=== PATIENT | female | born 1950 | race Caucasian/White ===

== ENCOUNTER 2016-11-29 10:10 | Outpatient (CLI) | payer MEDICARE, BC ==
[~2016-11-29] VITALS: Ht 162.6 cm; Wt 58.2 kg
--- NOTE | ~2016-11-29 | HEMODYNAMI ---
PATIENT:JAD CORNEJO MEDICAL RECORD: [id number] : 50 LOCATION:[facility] ADMISSION DATE: 11/29/16 Generatedon:11/29/201615:45 Patient name: JAD CORNEJO Patient #: [id number] SSN: : 1950 Date of study: 11/29/2016 Page: Of Hemodynamic Procedure Report Patient Data Patient Demographics Procedure consent was obtained First Name: JAD Gender: Female Last Name: CHANTAL : 1950 [facility] Initial: L Age: 66 year(s) Patient #: [id number] Race: Unknown Additional ID: [id number] Contact details Address: [address] [address] State: [place] City: [place] Zip code: [address] Admission Admission Data Admission Date: 11/29/2016 Admission Time: 10:10 Procedure Procedure Types Cath Procedure Peripheral Cath Diagnostic Procedure Miscellaneous Procedure Description Procedure Date Procedure Date: 11/29/2016 Procedure Start Time: 14:06 Procedure Staff Name Function Juvencio Sanches MD Performing Physician Brianne Bauer RT Scrub Phuong Virgen RN Nurse Luiz Hayden RT Monitor Procedure Data Cath Procedure Fluoroscopy Diagnostic fluoroscopy Total fluoroscopy Time: time: 19.9 min 19.9 min Diagnostic fluoroscopy Total fluoroscopy dose: 730 dose: 730 mGy mGy Contrast Material Contrast Material Type Amount (ml) Isovue 300 171 Entry Location Entry Primary Successful Side Size Upsize Upsize Entry Closure Succes sful Closure Location (Fr) 1 (Fr) 2 (Fr) Remarks Device Remarks Femoral Right 5 Fr 6 Fr Exoseal artery Short Femoral Left 5 Fr Exoseal artery Diagnostic catheters Device Type Used For End Catheter Placement Merit ULTRA BOLUS FLUSH 5Fr 65CM catheter Merit Impress KA 2 5Fr 40CM catheter Procedure Medications Medication Administration Route Dosage Heparin Bolus I.V. 5000 units Fentanyl I.V. 50 mcg Versed I.V. 1 mg Hemodynamics Rest Heart Rate: 56 (bpm) Snapshots Pre Cath Intra NCS Post Cath Vital Signs Time Heart Resp SPO2 NIBP (mmHg) Rhythm Pain Sedation Rate (ipm) (%) Status Level (bpm) 14:05:08 53 15 100 166/69(102) NSR 0 (11) 10(A) , No pain 14:09:35 59 16 100 180/78(106) NSR 0 (11) 10(A) , No pain 14:13:59 58 22 100 170/72(107) NSR 0 (11) 10(A) , No pain 14:19:12 60 14 100 148/66(114) NSR 0 (11) 10(A) , No pain 14:24:27 57 18 100 170/77(131) NSR 0 (11) 10(A) , No pain 14:28:54 58 24 100 175/73(128) NSR 0 (11) 10(A) , No pain 14:33:14 61 22 98 151/76(112) NSR 0 (11) 10(A) , No pain 14:37:36 61 23 97 146/69(111) NSR 0 (11) 10(A) , No pain 14:41:58 58 27 97 139/61(107) NSR 0 (11) 10(A) , No pain 14:46:20 55 18 96 122/54(91) NSR 0 (11) 10(A) , No pain 14:50:34 53 19 96 112/58(87) NSR 0 (11) 10(A) , No pain 14:54:44 55 18 97 112/60(87) NSR 0 (11) 10(A) , No pain 14:58:54 58 17 98 126/59(97) NSR 0 (11) 10(A) , No pain 15:03:10 56 19 98 122/55(82) NSR 0 (11) 10(A) , No pain 15:07:20 56 18 97 126/67(99) NSR 0 (11) 10(A) , No pain 15:11:36 59 20 98 128/57(102) NSR 0 (11) 10(A) , No pain 15:15:50 59 21 94 130/65(82) NSR 0 (11) 10(A) , No pain 15:20:04 57 19 94 134/66(91) NSR 0 (11) 10(A) , No pain 15:24:20 57 22 96 133/65(94) NSR 0 (11) 10(A) , No pain 15:28:38 57 18 99 135/55(93) NSR 0 (11) 10(A) , No pain 15:32:56 57 25 100 141/63(109) NSR 0 (11) 10(A) , No pain 15:37:14 55 23 100 133/70(101) NSR 0 (11) 10(A) , No pain 15:41:26 55 23 99 147/77(123) NSR 0 (11) 10(A) , No pain Medications Time Medication Route Dose Verified Delivered Reason Notes Effe ctiveness by by 14:20:39 Versed I.V. 1 mg Phuong Phuong for sedation Promise Virgen RN RN 14:20:53 Fentanyl I.V. 50 Phuong Phuong for sedation mcg Promise Virgen RN RN 14:27:27 Heparin I.V. 5000 Phuong Phuong for Bolus units Promise Virgen anticoagulation RN chips screen tender Log Time Note 13:39:18 Luiz Hayden RT (R) (CV) sent for patient. Start room use. 13:39:28 Time tracking: Regular hours 13:39:34 Plan of Care:Hemodynamics will remain stable., Cardiac rhythm will remain stable., Comfort level will be maintained., Respiratory function will remain adequate., Patient/ family verbilizes understanding of procedure., Procedure tolerated without complication., Recovers from procedure without complications.. 13:39:42 Patient received from Outpatients to [facility] 1 Alert and oriented. Tansferred to table in Supine position. 13:39:43 Correct patient and procedure confirmed by team. 13:39:45 Signed procedure consent form obtained from patient. 13:39:46 ECG and BP/O2 sat monitors applied to patient. 13:39:48 Full Disclosure recording started 13:39:48 - 13:39:51 H&P Date Dictated: 11/29/2016 H&P Addendum completed by physician on day of procedure. (MUST COMPLETE FOR ALL OUTPATIENTS). 13:39:52 Pre-procedure instructions explained to patient. 13:39:52 Pre-procedure instructions explained to patient. 13:39:53 Pre-op teaching completed and patient verbalized understanding. 13:39:54 Family in waiting room. 13:39:56 Patient NPO since Midnight. 13:40:01 Is the patient allergic to Iodine/contrast media? No. 13:40:03 Is patient on blood thinner?Yes 13:40:06 ACC The patient was administered the following blood thiners within the last 24 hours: ACCPlavix 13:40:08 - 13:40:09 ----Pre-sedation anethsthesia assessment.---- 13:40:09 ----Pre-sedation anethsthesia assessment.---- 13:40:12 Previous problem with sedation/anesthesia? No ? 13:40:13 Snore? Yes 13:40:14 Sleep apnea? No 13:40:16 Deviated septum? No 13:40:18 Opens mouth fully? Yes 13:40:20 Sticks out tongue? Yes 13:40:25 Airway obstruction? N/A ? 13:40:29 Airway obstruction? No ? 13:40:34 Dentures? Yes ? 13:40:39 Pre procedure: right dorsailis pedis pulse Doppler 13:40:44 Pre procedure: left dorsailis pedis pulse Doppler 13:40:47 Pre procedure: right posterior tibial pulse Doppler 13:40:51 Pre procedure: left posterior tibial pulse Doppler 13:41:00 Use device set IR Diagnostic 13:41:02 Acist Syringe opened to sterile field. 13:41:02 Acist Hand Control opened to sterile field. 13:41:03 Acist Manifold opened to sterile field. 13:41:03 Bag Decanter opened to sterile field. 13:41:04 Sterile Angiographic Pack opened to sterile field. 13:53:09 TUBING, CONTRAST INJCTN HI PRES opened to sterile field. 13:53:28 IV patent on arrival in right hand with 0.9% NaCl at [facility]. 13:53:31 Alarms reviewed by R. N. 13:53:32 Sharps counted by scrub and verified by R.N. 13:59:55 Baseline sample Acquired. 13:59:55 Vital chart was started 14:00:00 Rhythm: sinus bradycardia 14::27 Physician arrived 14:: --------ALL STOP TIME OUT------ :: Final Timeout: patient, procedure, and site verified with staff and physician. All members of the team are in agreement. 14::31 Left groin site verified by team. 14::35 Physical assessment completed. ASA score P 2 - A patient with mild systemic disease as per Juvencio Sanches MD. 14:05:41 Sedation plan: IV Moderate Sedation Versed, Fentanyl 14:06:09 Procedure started. 14:06:19 Local anesthetic to left femerol artery with Lidocaine 1% by Juvencio Sanches MD.INITIAL ACCESS ONLY 14:07:35 A 5 Fr sheath was inserted into the Right Femoral artery 14:07:57 Micropuncture VSI 4FR kit opened to sterile field. 14:07:58 Terumo 5Fr [place] Sheath opened to sterile field. 14:07:59 Cook DOC .035 guide wire opened to sterile field. 14:08:03 A Merit ULTRA BOLUS FLUSH 5Fr 65CM catheter was advanced over the wire and used for . 14:19:25 Cordis 6Fr BRITE TIP 11cm sheath opened to sterile field. 14:20:18 Sheath upsized to a 6 Fr Short. 14:20:39 Versed 1 mg I.V. was administered by Phuong Virgen RN; for sedation; 14::53 Fentanyl 50 mcg I.V. was administered by Phuong Virgen RN; for sedation; 14:23:09 Cook DOC .035 guide wire opened to sterile field. 14:25:55 CXI Catheter 90cm opened to sterile field. 14:25:55 Terumo ANGLE 180L glide wire opened to sterile field. 14:27:27 Heparin Bolus 5000 units I.V. was administered by Phuong Virgen RN; for anticoagulation; 14:28:53 A kubo financiero KA 2 5Fr 40CM catheter was advanced over the wire and used for . 14:36:30 BasixTOUCH Inflation Syringe opened to sterile field. 14:38:28 Cook MOBLEY 260 guide wire opened to sterile field. 14:52:22 Inflation number: 1 A Cordis Powerflex Pro 3.0 x 40 x 80cm balloon was prepped and advanced across the Proximal Common Iliac, Right, then inflated to 0 MIKIE for 0:00 (min:sec). 15:00:18 A 5 Fr sheath was inserted into the Left Femoral artery 15:07:10 Entrust 8 x 100 Stent was deployed across Proximal Common Iliac, Right . 15:14:55 Inflation number: 2 A Cordis Powerflex Pro 6.0 X 80 X 135 balloon was prepped and advanced across the Proximal Common Iliac, Right, then inflated to 0 MIKIE for 0:00 (min:sec). 15:21:54 Cordis 6Fr Exoseal opened to sterile field. 15:24:41 Sheath removed intact; hemostasis achieved with Exoseal to the Right Femoral artery. 15:25:44 Cordis 5Fr Exoseal opened to sterile field. 15:27:45 Sheath removed intact; hemostasis achieved with Exoseal to the Left Femoral artery. 15:27:51 Procedure ended.(Physican Out) 15:29:18 Fluoroscopy time 19.90 minutes. 15:29:26 Fluoroscopy dose: 730 mGy 15:29:26 Flurop Dose total: 730 15:29:32 Contrast amount:Isovue 300 171ml. 15:29:33 Sharps counted by scrub and verified by R.N. 15:29:35 Insertion/operative site no bleeding no hematoma. 15:29:40 Post-op/insertion site Right Femoral artery dressed using a 4 x 4 and Tegaderm. 15:29:48 Post left femerol artery:stable 15:30:13 Dermabond Pen opened to sterile field. 15:32:12 Post Procedure Pulses reassessed and unchanged 15:32:16 Post-procedure physical assessment completed. ASA score P 2 - A patient with mild systemic disease as per Juvencio Sanches MD. 15:32:19 Post procedure rhythm: unchanged. 15:32:22 Post procedure instruction explained to patient.Patient verbalizes understanding. 15:32:22 Procedure and supply charges have been captured, reviewed, submitted an d are correct. 15:43:41 Report given to Outpatients. 15:43:49 Patient transfered to Outpatients with Bed. 15:45:55 Vital chart was stopped Intervention Summary Intervention Notes Time ActionType Lesion and Equipment Action# Pressure Duration Attributes Used 14:52:22 Inflate Proximal Cordis 1 0 00:00 balloon Common Powerflex Iliac, Pro 3.0 x Right 40 x 80cm balloon 15:07:10 Deploy self Proximal Entrust 8 1 expanding Common x 100 stent Iliac, Stent Right 15:14:55 Inflate Proximal Cordis 2 0 00:00 balloon Common Powerflex Iliac, Pro 6.0 X Right 80 X 135 balloon Device Usage Item Name Manufacture Quantity Catalog Number Hospital Part Current Minimal Lot# / Charge Number Stock Stock Serial# Code Acist Syringe Acist 1 25853 268251 935689 743823 20 Medical [employer] Inc Acist Hand Acist 1 93110 422961 640568 598996 5 Control [employer] Inc Acist Acist 1 71746 273800 122990 400902 5 Manifold Medical Systems Inc Bag Decanter Microtek 1 2002S 538369 47882 748615 5 Medical Inc. Sterile Cardinal 1 [id number] 475934 570768 5 Angiographic Health Pack TUBING, Merit 1 [id number] 280706 620688 684880 5 CONTRAST Medical INJCTN HI PRES Micropuncture VSI VASCULAR 1 7266V 656046 774976 5 VSI 4FR kit SOLUTIONS Terumo 5Fr Terumo 1 [id number] 473817 194376 587218 40 [place] Sheath Cook DOC .035 [facility] 2 [id number] 928250 221817 5 [id number] guide wire [id number] Merit ULTRA Merit 1 [id number] 131977 687803 5 BOLUS FLUSH Medical 5Fr 65CM catheter Cordis 6Fr Cardinal 1 [id number] 422117 097370 5 BRITE TIP Health 11cm sheath CXI Catheter [facility] 1 K49797 047106 750262 634424 5 [id number] 90cm Terumo ANGLE Terumo 1 [id number] 709278 379690 160922 5 180L glide wire Merit Impress Merit 1 [id number] 726644 755570 5 KA 2 5Fr 40CM Medical catheter BasixTOUCH Merit 1 [id number] 104597 975429 958361 5 Inflation Medical Syringe Cook [facility] 1 E03794 237018 138681 5 2812020 260 guide wire Cordis Cardinal 1 [id number] 334663 460572 906516 5 Powerflex Pro Health 3.0 x 40 x 80cm balloon Entrust 8 x Ev3 1 [id number] 362812 174954 074033 5 100 Stent Cordis Cardinal 1 [id number] 194809 491834 299091 5 Powerflex Pro Health 6.0 X 80 X 135 balloon Cordis 6Fr Cardinal 1 EX600 123590 921636 264514 10 [id number] Exoseal Health Cordis 5Fr Cardinal 1 EX500 925172 779398 228113 10 [id number] Exoseal Health Dermabond Pen Cardinal 1 859464 849160 5 Health Signature Audit [place] Stage Time Signature Unsigned Intra-Procedure 11/29/2016 Luiz 3:45:51 PM Catracho RT (R) (CV) Signatures Monitor : Luiz Signature : Catracho RT Date : Time : [id number] [place] [address]
[2016-11-29 11:15] VITALS: BP 112/59; Ht 162.6 cm; Wt 58.2 kg
[2016-11-29 11:29] LABS: BASOPHILS 0.5 % (0-2); EOSINOPHILS 1.7 % (0-7); HEMATOCRIT 35.6 % (36.0-48.0); HEMOGLOBIN 12.1 g/dL (12-16); IMMATURE GRANULOCYTES 0.2 % (0-5); LYMPHOCYTES 28.2 % (15-50); MCH 36.2 pg (26.0-34.0); MCV 106.6 fL (80.0-100.0); MONOCYTES 6.2 % (2-11); NEUTROPHILS 63.2 % (40-80); PLATELET COUNT 309 10x3/uL (130-400); RBC 3.34 10x6/uL (4.00-5.40); WBC 6.5 10x3/uL (4.8-10.8)
[2016-11-29] MEDS ORDERED: BAYER CHEWABLE81 MG PO (11:31)
[2016-11-29] MEDS ORDERED: LEVOXYL50 MCG PO (11:32)
[2016-11-29] MEDS ORDERED: PAXIL30 MG PO (11:32)
[2016-11-29] MEDS ORDERED: HYDROXYUREA500 MG PO (11:33)
[2016-11-29] MEDS ORDERED: PRAVACHOL40 MG PO (11:34)
[2016-11-29] MEDS ORDERED: VITAMIN D31000 UNIT PO (11:35)
[2016-11-29] MEDS ORDERED: CALTRATE 600 M600 M1 PO (11:36)
[2016-11-29] MEDS ORDERED: PLAVIX75 MG PO (11:38)
[2016-11-29] MEDS ORDERED: SYMBICORT 80-10.2 GM (11:38)
[2016-11-29 11:57] LABS: CALC OSMOLALITY 282 mosm/kg (275-300); CALCIUM 9.2 mg/dL (8.5-10.1); CARBON DIOXIDE 27.2 mmol/L (21.0-32.0); CHLORIDE - SERUM 106 mmol/L (98-107); CREATININE - SERUM 0.7 mg/dL (0.6-1.3); GLUCOSE 105 mg/dL (74-106); POTASSIUM - SERUM 4.4 mmol/L (3.5-5.1); SODIUM 142 mmol/L (136-145); UREA NITROGEN 13 mg/dL (7-18); eGFR NON AFRICAN AMERICAN 89 mL/min (90-120)
[2016-11-29 12:17] LABS: APTT 31.9 SECONDS (22.8-39.4); INR 0.97 (0.85-1.17); PROTIME 12.7 SECONDS (11.6-15.0)
[2016-11-29] MEDS ORDERED: BAYER CHEWABLE81 MG (16:17)
--- NOTE | 2016-11-29 16:39 | NUR ---
1600 BACK FROM AFRO AND STENT. AWAKE RESP EVEN AND NONLABORED. HADLEY GROIN DRESSINGS C/D/I NO BLEEDING PULSES PRESENT WITH DOPPLAR. INSTRUCTED TO KEEP LEGS STRAIGHT. DENIES ICE WATER SERVED. C/L IN REACH. INSTRUCTED TO PATIENT HAS TO KEEP LEGS STRAIGHT TO PREVENT BLEEDING AND NOT TO ELEVATE HOB GREATER THAN 30 DEGREES.
--- NOTE | 2016-11-29 17:46 | NUR ---
1700 TOLERATING LIQUIDS AND ENCOURAGED LIQUIDS. ICE PACK TO HADLEY GROINS. NO BLEEDING PULSES PP WITH DOPPLER.
--- NOTE | 2016-11-29 18:00 | NUR ---
1705 DR. SAAVEDRA HERE SEEING PATIENT.
--- NOTE | 2016-11-29 18:01 | NUR ---
1800 REMAINS KEEPING LEGS STRAIGHT PP WITH DOPPLER POSTERIAL TIBIALIS WEAK.
--- NOTE | 2016-11-29 19:31 | NUR ---
1850 RESP EVEN AND NONLABORED. UP WITH ASSISTANCE TO THE BATHROOM VOIDED. WENT OVER DISCHARGE INSTRUCTIONS POST ARTERIOGRAM ORDERS. INSTRUCTED TO TAKE PLAVIX DAILY STARTING TOMORROW AND INSTRUCTED TO TAKE ASA 81MG NOT 325 MG. TOLD WHAT TO DO AND NOT TO DO. VERBALLY UNDERSTANDS.
--- NOTE | 2016-11-29 19:33 | NUR ---
1915 TO HOME VIA W/C WITH SPOUSE.
== END 2016-11-29 19:15 | disposition home or self-care (01) ==
LOC: D.OPS 10:10 → D.SP 13:00 → D.OPS 13:00
PROVIDERS: General Practice
DX: I70.223 Atherosclerosis of native arteries of extremities with rest pain, bilateral legs (principal); I70.92 Chronic total occlusion of artery of the extremities; I77.811 Abdominal aortic ectasia; Z88.0 Allergy status to penicillin; Z88.8 Allergy status to other drugs, medicaments and biological substances; Z01.812 Encounter for preprocedural laboratory examination

== ENCOUNTER 2016-12-11 10:58 | Outpatient (CLI) | payer MEDICARE, BC ==
[~2016-12-11] VITALS: Ht 162.6 cm; Wt 58.6 kg
--- NOTE | ~2016-12-11 | HEMODYNAMI ---
PATIENT:JAD CORNEJO MEDICAL RECORD: [id number] : 50 LOCATION:[facility] ADMISSION DATE: 12/11/16 Generatedon:12/11/201615:30 Patient name: JAD CORNEJO Patient #: [id number] SSN: : 1950 Date of study: 12/11/2016 Page: Of Hemodynamic Procedure Report Patient Data Patient Demographics Procedure consent was obtained First Name: JAD Gender: Female Last Name: CHANTAL : 1950 [facility] Initial: L Age: 66 year(s) Patient #: [id number] Race: Unknown Additional ID: [id number] Contact details Address: [place] [address] State: [place] City: [place] Zip code: [address] Admission Admission Data Admission Date: 12/11/2016 Admission Time: 10:58 Procedure Procedure Types Cath Procedure Peripheral Cath Diagnostic Procedure Miscellaneous Procedure Description Procedure Date Procedure Date: 12/11/2016 Procedure Start Time: 14:03 Procedure Staff Name Function Juvencio Sanches MD Performing Physician Brianne Bauer RT Scrub Phuong Virgen RN Nurse Luiz Hayden RT Monitor Procedure Data Cath Procedure Fluoroscopy Diagnostic fluoroscopy Total fluoroscopy Time: time: 18.8 min 18.8 min Diagnostic fluoroscopy Total fluoroscopy dose: 124 dose: 124 mGy mGy Contrast Material Contrast Material Type Amount (ml) Isovue 300 132 Entry Location Entry Primary Successful Side Size Upsize 1 Upsize Entry Closure Cordero ccessful Closure Location (Fr) (Fr) 2 (Fr) Remarks Device Remarks Femoral Right 5 Fr 6 Fr Exoseal artery Mid-Length Diagnostic catheters Device Type Used For End Catheter Placement Merit ULTRA BOLUS FLUSH 5Fr 65CM catheter Procedure Medications Medication Administration Route Dosage Fentanyl I.V. 50 mcg Versed I.V. 1 mg Fentanyl I.V. 50 mcg Versed I.V. 1 mg Heparin Bolus I.V. 5000 units Nitroglycerin IC/IA I.A. 200 mcg Nitroglycerin IC/IA I.A. 200 mcg Hemodynamics Rest Heart Rate: 58 (bpm) Snapshots Pre Cath Intra NCS Post Cath Vital Signs Time Heart Resp SPO2 NIBP (mmHg) Rhythm Pain Sedation Rate (ipm) (%) Status Level (bpm) 14:11:30 64 19 98 151/62(121) NSR 0 (11) 10(A) , No pain 14:15:54 60 21 96 118/50(77) NSR 0 (11) 10(A) , No pain 14:20:06 60 22 98 135/56(85) NSR 0 (11) 10(A) , No pain 14:24:26 61 27 98 125/48(76) NSR 0 (11) 10(A) , No pain 14:28:42 64 19 99 132/53(93) NSR 0 (11) 10(A) , No pain 14:33:02 62 21 97 111/46(73) NSR 0 (11) 10(A) , No pain 14:37:08 61 19 97 103/70(86) NSR 0 (11) 10(A) , No pain 14:42:15 60 20 98 118/53(80) NSR 0 (11) 10(A) , No pain 14:46:28 61 19 98 124/55(85) NSR 0 (11) 10(A) , No pain 14:50:41 60 28 98 129/58(88) NSR 0 (11) 10(A) , No pain 14:54:58 59 21 98 123/57(82) NSR 0 (11) 10(A) , No pain 14:59:11 62 20 96 124/59(95) NSR 0 (11) 10(A) , No pain 15:03:27 59 21 98 132/53(93) NSR 0 (11) 10(A) , No pain 15:07:33 61 15 98 107/83(92) NSR 0 (11) 10(A) , No pain 15:12:40 57 19 98 128/57(86) NSR 0 (11) 10(A) , No pain 15:16:57 58 22 99 134/57(91) NSR 0 (11) 10(A) , No pain 15:21:02 58 12 100 126/63(95) NSR 0 (11) 10(A) , No pain 15:25:12 59 32 100 142/69(109) NSR 0 (11) 10(A) , No pain 15:29:18 57 27 100 118/61(93) NSR 0 (11) 10(A) , No pain Medications Time Medication Route Dose Verified Delivered Reason Notes Ef fectiveness by by 14:08:51 Versed I.V. 1 mg Phuong Phuong for sedation Promise Virgen RN RN 14:08:57 Fentanyl I.V. 50 Phuong Phuong for sedation mcg Promise Virgen RN RN 14:14:03 Fentanyl I.V. 50 Phuong Phuong for sedation mcg Promise Virgen RN RN 14:14:11 Versed I.V. 1 mg Phuong Phuong for sedation Promise Virgen RN RN 14:27:59 Nitroglycerin I.A. 200 Phuong Juvencio for IC/IA mcg Promise Sanches MD vasodilation RN 14:30:11 Heparin Bolus I.V. 5000 Phuong Phuong for units Promise Virgen anticoagulation RN RN 14:57:11 Nitroglycerin I.A. 200 Phuong Juvencio for IC/IA mcg Promise Sanches MD vasodilation atg architect Log Time Note 13:39:04 Luiz Hayden RT (R) (CV) sent for patient. Start room use. 13:39:37 Use device set IR Diagnostic 13:39:38 Acist Syringe opened to sterile field. 13:39:38 Acist Hand Control opened to sterile field. 13:39:39 Acist Manifold opened to sterile field. 13:39:39 Bag Decanter opened to sterile field. 13:39:39 Sterile Angiographic Pack opened to sterile field. 13:39:43 Time tracking: Regular hours 13:39:47 Plan of Care:Hemodynamics will remain stable., Cardiac rhythm will remain stable., Comfort level will be maintained., Respiratory function will remain adequate., Patient/ family verbilizes understanding of procedure., Procedure tolerated without complication., Recovers from procedure without complications.. 13:39:53 Patient received from Outpatients to IR Alert and oriented. Tansferred to table in Supine position. 13:39:54 Correct patient and procedure confirmed by team. 13:39:57 Signed procedure consent form obtained from patient. 13:39:58 ECG and BP/O2 sat monitors applied to patient. 13:39:59 Full Disclosure recording started 13:40:00 - 13:40:05 H&P Date Dictated: 12/11/2016 H&P Addendum completed by physician on day of procedure. (MUST COMPLETE FOR ALL OUTPATIENTS). 13:40:06 Pre-procedure instructions explained to patient. 13:40:07 Pre-op teaching completed and patient verbalized understanding. 13:40:08 Family in waiting room. 13:40:10 Patient NPO since Midnight. 13:40:12 Is the patient allergic to Iodine/contrast media? No. 13:40:15 Is patient on blood thinner?Yes 13:40:17 ACC The patient was administered the following blood thiners within the last 24 hours: ACCPlavix 13:40:20 Patient diabetic? No. 13:40:22 - 13:40:22 - 13:40:24 ----Pre-sedation anethsthesia assessment.---- 13:40:27 Previous problem with sedation/anesthesia? No ? 13:40:28 Snore? Yes 13:40:31 Sleep apnea? No 13:40:34 Deviated septum? No 13:40:35 Opens mouth fully? Yes 13:40:37 Sticks out tongue? Yes 13:40:40 Airway obstruction? Yes copd 13:40:44 Dentures? No ? 13:40:54 Patient pain scale 0/10 no pain. 13:41:07 IV patent on arrival in right forearm with 0.9% NaCl at [facility]. 13:41:13 Sharps counted by scrub and verified by R.N. 13:41:13 Alarms reviewed by R. N. 13:41:26 Bilateral groins area was prepped with chlora-prep and draped in steril e fashion 14:00:03 Physician arrived 14:00:04 --------ALL STOP TIME OUT------ 14:00:05 Final Timeout: patient, procedure, and site verified with staff and physician. All members of the team are in agreement. 14:00:07 Bilateral groins site verified by team. 14:00:16 Physical assessment completed. ASA score P 2 - A patient with mild systemic disease as per Juvencio Sanches MD. 14:00:18 Procedure started. 14:00:20 Sedation plan: IV Moderate Sedation Versed, Fentanyl 14:03:36 Local anesthetic to right femoral artery with Lidocaine 1% by Juvencio Sanches MD.INITIAL ACCESS ONLY 14:08:16 TUBING, CONTRAST INJCTN HI PRES opened to sterile field. 14:08:17 Tech.eu DOC .035 guide wire opened to sterile field. 14:08:17 Micropuncture VSI 4FR kit opened to sterile field. 14:08:18 Terumo 5Fr Savage Sheath opened to sterile field. 14:08:28 A [place] PUD ULTRA BOLUS FLUSH 5Fr 65CM catheter was advanced over the wire and used for . 14:08:51 Versed 1 mg I.V. was administered by Phuong Virgen RN; for sedation; 14:08:57 Fentanyl 50 mcg I.V. was administered by Phuong Virgen RN; for sedation; 14:10:07 Vital chart was started 14:10:09 Baseline sample Acquired. 14:10:14 Rhythm: sinus rhythm 14:14:03 Fentanyl 50 mcg I.V. was administered by Phuong Virgen RN; for sedation; 14:14:11 Versed 1 mg I.V. was administered by Phuong Virgen RN; for sedation; 14:14:49 Terumo TORQUE DEVICE PLASTIC .038 opened to sterile field. 14:14:50 Terumo ANGLE 260cm glide wire opened to sterile field. 14:14:51 Cook MOBLEY 260 guide wire opened to sterile field. 14:15:05 A 5 Fr sheath was inserted into the Right Femoral artery 14:16:34 Terumo 5FR ANGLED 100CM glide catheter opened to sterile field. 14:19:09 Baseline sample Acquired. 14:24:32 Terumo 6Fr Savage Destination Sheath opened to sterile field. 14:24:33 CXI SUPPORT .035 135 CM STR catheter opened to sterile field. 14:24:40 Sheath upsized to a 6 Fr Mid-Length. 14:25:29 BasixTOUCH Inflation Syringe opened to sterile field. 14:27:59 Nitroglycerin IC/IA 200 mcg I.A. was administered by Juvencio Sanches MD; fo r vasodilation; 14:30:11 Heparin Bolus 5000 units I.V. was administered by Phuong Virgen RN; for anticoagulation; 14:39:38 SPIDER EMBOLIC PROTECTION DEVICE 4MM opened to sterile field. 14:40:30 [place] Sci Choice Floppy Straight 300cm 0.014 guid opened to sterile field. 14:57:11 Nitroglycerin IC/IA 200 mcg I.A. was administered by Juvencio Sanches MD; fo r vasodilation; 14:58:44 Inflation number: 1 A IN.PACT Admiral 4 x 150 balloon was prepped and advanced across the Undefined1, then inflated to 0 MIKIE for 0:00 (min:sec). 15:05:55 Timer 1 started at 3:05 PM, stopped at 3:05 PM, duration 00:00:01 sec. 15:07:32 Turbohawk 1 Small Atherectomy catheter opened to sterile field. 15:16:43 Cordis 6Fr Exoseal opened to sterile field. 15:20:41 Terumo 6Fr Savage Sheath opened to sterile field. 15:22:43 Sheath removed intact; hemostasis achieved with Exoseal to the Right Femoral artery. 15:22:47 Procedure ended.(Physican Out) 15:23:53 Fluoroscopy time 18.80 minutes. 15:23:58 Fluoroscopy dose: 124 mGy 15:23:58 Flurop Dose total: 124 15:24:13 Contrast amount:Isovue 300 132ml. 15:24:15 Sharps counted by scrub and verified by TrentN. 15:25:36 Post-op/insertion site Right Femoral artery dressed using a 4 x 4 and Tegaderm. 15:25:39 Post right femoral artery:stable 15:25:41 Post Procedure Pulses reassessed and unchanged 15:25:44 Post-procedure physical assessment completed. ASA score P 2 - A patient with mild systemic disease as per Juvencio Sanches MD. 15:25:45 Post procedure instruction explained to patient.Patient verbalizes understanding. 15:25:52 Procedure and supply charges have been captured, reviewed, submitted an d are correct. 15:30:06 Report given to Outpatients. 15:30:10 Patient transfered to Outpatients with Stretcher. 15:30:50 Vital chart was stopped Intervention Summary Intervention Notes Time ActionType Lesion and Equipment Action# Pressure Duration Attributes Used 14:58:44 Inflate Undefined1 IN.PACT 1 0 00:00 balloon Admiral 4 x 150 balloon Device Usage Item Name Manufacture Quantity Catalog Number Hospital Part Current Minimal Lot# / Charge Number Stock Stock Serial# Code Acist Syringe Acist 1 33729 297858 412872 716116 20 Medical Systems Inc Acist Hand Acist 1 31363 825342 633245 732365 5 Control Medical Systems Inc Acist Acist 1 44531 761458 947125 866897 5 Manifold Medical Systems Inc Bag Decanter Microtek 1 2002S 890229 33408 689850 5 Medical Inc. Sterile Cardinal 1 [id number] 824112 686550 5 Angiographic Health Pack TUBING, Merit 1 [id number] 344958 536901 396547 5 CONTRAST Medical INJCTN HI PRES Cook DOC .035 [place] [facility] 1 [id number] 564186 122053 5 [id number] guide wire Micropuncture VSI VASCULAR 1 7266V 980798 695528 5 VSI 4FR kit SOLUTIONS Terumo 5Fr Terumo 1 RLP230 629614 893939 655891 40 Savage Sheath Merit ULTRA Merit 1 [id number] 206272 066390 5 BOLUS FLUSH Medical 5Fr 65CM catheter Terumo TORQUE [place] 1 TD01 089957 028816 857522 5 DEVICE Scientific PLASTIC .038 Terumo ANGLE Terumo 1 GV7982 987759 324547 114793 5 260cm glide wire [facility] Medical 1 K36037 562049 955094 5 [id number] 260 guide wire Terumo 5FR Terumo 1 CG508 550646 99110 974314 4 ANGLED 100CM glide catheter Terumo 6Fr Terumo 1 RSR01 443759 87835 405157 5 Savage Destination Sheath CXI SUPPORT Cook Medical 1 A65315 588970 719244 5 [id number] .035 135 CM STR catheter BasixTOUCH Merit 1 JS8940 882161 894724 193877 5 Inflation Medical Syringe SPIDER Medtronic 1 [id number] 219940 032557 5 EMBOLIC PROTECTION DEVICE 5MM [place] Sci [place] 1 [id number] 210205 571195 161249 5 Choice Floppy Scientific Straight 300cm 0.014 guid IN.PACT Medtronic 1 [id number] 802272 2352272 165872 5 [id number] Admiral 4 x 150 balloon Turbohawk 1 Ev3 1 H1-S 301395 3804447 829047 5 Small Atherectomy catheter Cordis 6Fr Cardinal 1 EX600 581686 825823 835[id number] [facility] Terumo 6Fr Terumo 1 YMN321 651841 646796 493969 40 Savage Sheath Signature Audit [place] Stage Time Signature Unsigned Intra-Procedure 12/11/2016 Luiz 3:30:45 PM [place] RT (R) (CV) Signatures Monitor : Luiz Signature : [place] RT Date : Time : [facility] [address] [place] [address]
[~2016-12-11 10:58] MED LIST: BAYER CHEWABLE81 MG; BAYER CHEWABLE81 MG PO; CALTRATE 600 M600 M1 PO; HYDROXYUREA500 MG PO; LEVOXYL50 MCG PO; PAXIL30 MG PO; PLAVIX75 MG PO; PRAVACHOL40 MG PO; SYMBICORT 80-10.2 GM; VITAMIN D31000 UNIT PO
[2016-12-11 12:37] LABS: BASOPHILS 0.6 % (0-2); EOSINOPHILS 2.4 % (0-7); HEMATOCRIT 34.7 % (36.0-48.0); HEMOGLOBIN 11.7 g/dL (12-16); IMMATURE GRANULOCYTES 0.1 % (0-5); LYMPHOCYTES 22.5 % (15-50); MCH 35.5 pg (26.0-34.0); MCHC 33.7 g/dL (31.0-37.0); MCV 105.2 fL (80.0-100.0); MEAN PLATELET VOLUME 8.5 fL (7.4-10.4); NEUTROPHILS 67.4 % (40-80); RDW 15.8 % (11.5-14.5); WBC 7.2 10x3/uL (4.8-10.8)
[2016-12-11 12:39] LABS: PLATELET COUNT 439 10x3/uL (130-400)
[2016-12-11 12:46] LABS: ANION GAP 13.2 mmol/L (8-16); CALCIUM 9.1 mg/dL (8.5-10.1); CARBON DIOXIDE 29.7 mmol/L (21.0-32.0); CREATININE - SERUM 0.9 mg/dL (0.6-1.3); POTASSIUM - SERUM 4.9 mmol/L (3.5-5.1)
[2016-12-11 12:53] LABS: APTT 31.4 SECONDS (22.8-39.4); INR 0.99 (0.85-1.17); PROTIME 12.9 SECONDS (11.6-15.0)
[2016-12-11 13:17] VITALS: Ht 162.6 cm; Wt 58.6 kg
== END 2016-12-11 18:40 | disposition home or self-care (01) ==
LOC: D.OPS 10:58 → D.RAD 13:30 → D.OPS 13:30 → D.RAD 14:00 → D.OPS 18:40
PROVIDERS: General Practice
DX: I70.212 Atherosclerosis of native arteries of extremities with intermittent claudication, left leg (principal); I65.22 Occlusion and stenosis of left carotid artery; F17.200 Nicotine dependence, unspecified, uncomplicated

== ENCOUNTER 2016-12-26 05:40 | Outpatient (CLI) | payer MEDICARE, BC ==
[~2016-12-26] VITALS: Ht 162.6 cm; Wt 58.6 kg
--- NOTE | ~2016-12-26 | HEMODYNAMI ---
PATIENT:JAD CORNEJO MEDICAL RECORD: [id number] : 50 LOCATION:[facility] ADMISSION DATE: 12/26/16 Generatedon:12/26/201610:39 Patient name: JAD CORNEJO Patient #: [id number] SSN: : 1950 Date of study: 12/26/2016 Page: Of Hemodynamic Procedure Report Patient Data Patient Demographics Procedure consent was obtained First Name: JAD Gender: Female Last Name: CHANTAL : 1950 [facility] Initial: L Age: 66 year(s) Patient #: [id number] Race: Unknown Additional ID: [id number] Contact details Address: [place] [address] State: [place] City: [place] Zip code: [address] Admission Admission Data Admission Date: 12/26/2016 Admission Time: 5:40 Procedure Procedure Types Cath Procedure Peripheral Cath Diagnostic Procedure Miscellaneous Procedure Description Procedure Date Procedure Date: 12/26/2016 Procedure Start Time: 8:35 Procedure Staff Name Function Juvencio Sanches MD Performing Physician Brianne Bauer RT Scrub Phuong Virgen RN Nurse Luiz Hayden RT Monitor Procedure Data Cath Procedure Fluoroscopy Diagnostic fluoroscopy Total fluoroscopy Time: time: 18.2 min 18.2 min Diagnostic fluoroscopy Total fluoroscopy dose: 383 dose: 383 mGy mGy Contrast Material Contrast Material Type Amount (ml) Isovue 300 141 Entry Location Entry Primary Successful Side Size Upsize 1 Upsize Entry Closure Cordero ccessful Closure Location (Fr) (Fr) 2 (Fr) Remarks Device Remarks Femoral Right 5 Fr 6 Fr Exoseal artery Mid-Length Diagnostic catheters Device Type Used For End Catheter Placement Merit ULTRA BOLUS FLUSH 5Fr 65CM catheter Procedure Medications Medication Administration Route Dosage Fentanyl I.V. 50 mcg Versed I.V. 1 mg Fentanyl I.V. 50 mcg Versed I.V. 1 mg Heparin Bolus I.V. 5000 units Nitroglycerin IC/IA I.A. 200 mcg Nitroglycerin IC/IA I.A. 200 mcg Nitroglycerin IC/IA I.A. 200 mcg Hemodynamics Rest Heart Rate: 0 (bpm) Snapshots Pre Cath Intra NCS Post Cath Vital Signs Time Heart Resp SPO2 NIBP (mmHg) Rhythm Pain Sedation Rate (ipm) (%) Status Level (bpm) 8:10:50 84 28 97 125/81(108) NSR 0 (11) 10(A) , No pain 8:15:06 54 17 94 143/61(94) NSR 0 (11) 10(A) , No pain 8:19:26 54 26 95 151/63(89) NSR 0 (11) 10(A) , No pain 8:23:49 54 27 97 152/63(91) NSR 0 (11) 10(A) , No pain 8:28:09 54 27 93 148/68(98) NSR 0 (11) 10(A) , No pain 8:32:31 55 25 95 143/59(88) NSR 0 (11) 10(A) , No pain 8:36:45 55 25 96 148/68(96) NSR 0 (11) 10(A) , No pain 8:40:55 80 25 95 160/87(120) NSR 0 (11) 10(A) , No pain 8:45:17 66 23 91 169/74(122) NSR 0 (11) 10(A) , No pain 8:49:41 59 24 93 156/65(93) NSR 0 (11) 10(A) , No pain 8:54:03 61 23 94 147/68(103) NSR 0 (11) 10(A) , No pain 8:58:19 61 26 90 141/71(105) NSR 0 (11) 10(A) , No pain 9:02:35 56 24 98 144/66(98) NSR 0 (11) 10(A) , No pain 9:06:53 54 19 97 119/62(79) NSR 0 (11) 10(A) , No pain 9:12:17 57 19 96 109/49(104) NSR 0 (11) 10(A) , No pain 9:16:25 58 17 96 111/56(74) NSR 0 (11) 10(A) , No pain 9:21:45 57 16 98 118/55(80) NSR 0 (11) 10(A) , No pain 9:25:59 56 16 98 118/53(74) NSR 0 (11) 10(A) , No pain 9:30:12 58 17 97 106/47(71) NSR 0 (11) 10(A) , No pain 9:34:22 60 17 97 100/48(83) NSR 0 (11) 10(A) , No pain 9:38:26 62 19 97 112/59(73) NSR 0 (11) 10(A) , No pain 9:42:34 57 16 98 122/58(84) NSR 0 (11) 10(A) , No pain 9:46:46 61 22 96 110/58(75) NSR 0 (11) 10(A) , No pain 9:50:52 58 20 97 123/64(79) NSR 0 (11) 10(A) , No pain 9:55:06 58 20 98 125/58(89) NSR 0 (11) 10(A) , No pain 9:59:20 62 20 97 110/54(74) NSR 0 (11) 10(A) , No pain 10:03:29 61 20 97 126/56(76) NSR 0 (11) 10(A) , No pain 10:07:43 58 22 98 117/62(82) NSR 0 (11) 10(A) , No pain 10:11:53 67 13 98 111/61(81) NSR 0 (11) 10(A) , No pain 10:16:01 56 27 99 127/62(87) NSR 0 (11) 10(A) , No pain 10:20:15 57 20 99 126/61(79) NSR 0 (11) 10(A) , No pain 10:24:29 57 14 99 118/60(81) NSR 0 (11) 10(A) , No pain 10:28:39 57 31 100 129/62(94) NSR 0 (11) 10(A) , No pain 10:32:53 53 22 99 126/64(92) NSR 0 (11) 10(A) , No pain 10:37:05 55 23 126/66(88) NSR 0 (11) 10(A) , No pain Medications Time Medication Route Dose Verified Delivered Reason Notes Eff ectiveness by by 8:40:01 Versed I.V. 1 mg Phuong Phuong for sedation Promise Promise RN RN 8:40:35 Fentanyl I.V. 50 Phuong Phuong for sedation mcg Promise Promise RN RN 9:00:00 Fentanyl I.V. 50 Phuong Phuong for sedation mcg Promise Promise RN RN 9:00:09 Versed I.V. 1 mg Phuong Phuong for sedation Promise Promise RN RN 9:17:18 Heparin Bolus I.V. 5000 Phuong Phuong for units Promise Promise anticoagulation RN RN 9:25:51 Nitroglycerin I.A. 200 Phuong Juvencio for IC/IA mcg Promise Sanches MD vasodilation RN 9:44:49 Nitroglycerin I.A. 200 Phuong Juvencio for IC/IA mcg Promise Sanches MD vasodilation RN 9:57:22 Nitroglycerin I.A. 200 Phuong Juvencio for IC/IA mcg Promise Sanches MD vasodilation material specialist Log Time Note 7:52:12 Luiz Hayden RT (R) (CV) sent for patient. Start room use. 7:52:20 Time tracking: Regular hours 7:52:25 Plan of Care:Hemodynamics will remain stable., Cardiac rhythm will remain stable., Comfort level will be maintained., Respiratory function will remain adequate., Patient/ family verbilizes understanding of procedure., Procedure tolerated without complication., Recovers from procedure without complications.. 7:52:32 Patient received from Outpatients to IR Alert and oriented. Tansferred to table in Supine position. 7:52:33 Correct patient and procedure confirmed by team. 7:52:35 Signed procedure consent form obtained from patient. 7:52:36 ECG and BP/O2 sat monitors applied to patient. 7:52:38 Full Disclosure recording started 7:52:38 - 7:52:41 H&P Date Dictated: 12/26/2016 H&P Addendum completed by physician on day of procedure. (MUST COMPLETE FOR ALL OUTPATIENTS). 7:52:44 Pre-op teaching completed and patient verbalized understanding. 7:52:45 Pre-procedure instructions explained to patient. 7:52:48 Family in waiting room. 7:52:50 Patient NPO since Midnight. 7:52:52 Is the patient allergic to Iodine/contrast media? No. 7:52:56 Was the patient premedicated? No 7:52:58 Is patient on blood thinner?Yes 7:53:01 ACC The patient was administered the following blood thiners within the last 24 hours: ACCPlavix 7:53:03 Patient diabetic? No. 7:53:07 ----Pre-sedation anethsthesia assessment.---- 7:53:10 Previous problem with sedation/anesthesia? No ? 7:53:12 Snore? Yes 7:53:14 Sleep apnea? No 7:56:43 Deviated septum? No 7:56:44 Opens mouth fully? Yes 7:56:46 Sticks out tongue? Yes 7:56:59 Airway obstruction? Yes copd 7:57:06 Dentures? No ? 7:57:11 Use device set IR Diagnostic 7:57:13 Sterile Angiographic Pack opened to sterile field. 7:57:15 Bag Decanter opened to sterile field. 7:57:15 Acist Manifold opened to sterile field. 7:57:16 Acist Hand Control opened to sterile field. 7:57:17 Acist Syringe opened to sterile field. 8:02:43 Pre procedure: right dorsailis pedis pulse Doppler 8:02:47 Pre procedure: left dorsailis pedis pulse 2+ Normal; easily identifiable; not easily obliterated 8:02:49 Pre procedure: right posterior tibial pulse Doppler 8:02:53 Pre procedure: left posterior tibial pulse Doppler 8:02:59 Patient pain scale 0/10 no pain. 8:03:02 Sharps counted by scrub and verified by R.N. 8:03:02 Alarms reviewed by R. N. 8:09:45 Baseline sample Acquired. 8:09:45 Vital chart was started 8:09:51 Rhythm: sinus rhythm 8:21:24 destination 8:25:54 IV patent on arrival in right forearm with 0.9% NaCl at [facility]. 8:26:20 Left groin area was prepped with chlora-prep and draped in sterile fashion 8:31: Physician arrived 8:: --------ALL STOP TIME OUT------ 8:: Final Timeout: patient, procedure, and site verified with staff and physician. All members of the team are in agreement. 8:31:11 Left groin site verified by team. 8:31:19 Physical assessment completed. ASA score P 3 - A patient with severe systemic disease as per Juvencio Sanches MD. 8:31:23 Sedation plan: IV Moderate Sedation Versed, Fentanyl 8:31:46 Baseline sample Acquired. 8:35:15 Procedure started. 8:35:25 Local anesthetic to left femerol artery with Lidocaine 1% by Juvencio Sanches MD.INITIAL ACCESS ONLY 8:40:01 Versed 1 mg I.V. was administered by Phuong Virgen RN; for sedation; 8:40:35 Fentanyl 50 mcg I.V. was administered by Phuong Virgen RN; for sedation; 8:42:26 Terumo 5Fr Carbon Cliff Sheath opened to sterile field. 8:42:26 Micropuncture VSI 4FR kit opened to sterile field. 8:42:26 Cook DOC .035 guide wire opened to sterile field. 8:42:27 Cook MOBLEY 260 guide wire opened to sterile field. 8:42:27 Terumo ANGLE 260cm glide wire opened to sterile field. 8:50:21 A Merit ULTRA BOLUS FLUSH 5Fr 65CM catheter was advanced over the wire and used for . 8:50:39 Terumo 6Fr Carbon Cliff Destination Sheath opened to sterile field. 8:50:53 A 5 Fr sheath was inserted into the Right Femoral artery 8:52:01 Sheath upsized to a 6 Fr Mid-Length. 8:52:37 TUBING, CONTRAST INJCTN HI PRES opened to sterile field. 8:52:44 Terumo TORQUE DEVICE PLASTIC .038 opened to sterile field. 8:54:16 CXI SUPPORT .035 135 CM STR catheter opened to sterile field. 8:55:06 Terumo 5FR ANGLED 65CM glide catheter opened to sterile field. 9:00:00 Fentanyl 50 mcg I.V. was administered by Phuong Virgen RN; for sedation; 9:00:09 Versed 1 mg I.V. was administered by Phuong Virgen RN; for sedation; 9:17:18 Heparin Bolus 5000 units I.V. was administered by Phuong Virgen RN; for anticoagulation; 9:22:00 [place] Sci Choice PT Extra Support J 300cm .014 gu opened to sterile field. 9:25:14 SPIDER EMBOLIC PROTECTION DEVICE 4MM opened to sterile field. 9:25:51 Nitroglycerin IC/IA 200 mcg I.A. was administered by Juvencio Sanches MD; fo r vasodilation; 9:33:44 Turbohawk 1 Small Atherectomy catheter opened to sterile field. 9:35:49 BasixTOUCH Inflation Syringe opened to sterile field. 9:44:49 Nitroglycerin IC/IA 200 mcg I.A. was administered by Juvencio Sanches MD; fo r vasodilation; 9:51:30 Inflation number: 1 A IN.PACT Admiral 5.0 x 120 x 135 DCB Balloon was prepped and advanced across the Distal Superficial Femoral, Right, then inflated to 0 MIKIE for 3:22 (min:sec). 9:57:22 Nitroglycerin IC/IA 200 mcg I.A. was administered by Juvencio Sanches MD; fo r vasodilation; 10:13:36 Terumo 6Fr Carbon Cliff Sheath opened to sterile field. 10:13:37 Cordis 6Fr Exoseal opened to sterile field. 10:20:12 Sheath removed intact; hemostasis achieved with Exoseal to the Right Femoral artery. 10:20:15 Procedure ended.(Physican Out) 10:22:05 Fluoroscopy time 18.20 minutes. 10:22:11 Flurop Dose total: 383 10:22:11 Fluoroscopy dose: 383 mGy 10:22:15 Contrast amount:Isovue 300 141ml. 10:22:16 Sharps counted by scrub and verified by R.N. 10:22:46 Insertion/operative site no bleeding no hematoma. 10:22:50 Post-op/insertion site Left Femoral artery dressed using a 4 x 4 and Tegaderm. 10:22:55 Post left femerol artery:stable 10:22:56 Post Procedure Pulses reassessed and unchanged 10:23:00 Post-procedure physical assessment completed. ASA score P 3 - A patient with severe systemic disease as per Juvencio Sanches MD. 10:23:03 Post procedure rhythm: unchanged. 10:23:05 Procedure and supply charges have been captured, reviewed, submitted an d are correct. 10:23:07 Post procedure instruction explained to patient.Patient verbalizes understanding. 10:34:03 Report given to Outpatients. 10:36:28 Patient transfered to Outpatients with Stretcher. 10:39:59 Vital chart was stopped Intervention Summary Intervention Notes Time ActionType Lesion and Equipment Action# Pressure Duration Attributes Used 9:51:30 Inflate Distal IN.PACT 1 0 03:22 balloon Superficial Admiral Femoral, 5.0 x 120 Right x 135 DCB Balloon Device Usage Item Name Manufacture Quantity Catalog Number Hospital Part Current Minimal Lot# / Charge Number Stock Stock Serial# Code Sterile Cardinal 1 [id number] 100436 5 Angiographic Health Pack Bag Decanter Microtek 1 2002S 118495 88822 935054 5 Medical Inc. Acist Acist 1 25610 586274 315082 694101 5 Manifold Medical Systems Inc Acist Hand Acist 1 96596 840675 176321 561221 5 Control Medical Systems Inc Acist Syringe Acist 1 71662 414694 068563 931066 20 Medical Systems Inc Terumo 5Fr Terumo 1 CTB691 647872 441260 993853 40 Carbon Cliff Sheath Micropuncture VSI VASCULAR 1 7266V 403479 380653 5 VSI 4FR kit SOLUTIONS [place] DOC .035 [facility] 1 [id number] 276238 125049 5 [id number] guide wire [facility] 1 P67337 036082 261023 5 [id number] 260 guide wire Terumo ANGLE Terumo 1 UY5838 308594 352076 184244 5 260cm glide wire Merit ULTRA Merit 1 [id number] 171165 026407 5 BOLUS FLUSH Medical 5Fr 65CM catheter Terumo 6Fr Terumo 1 RSR01 290858 58698 531224 5 Carbon Cliff Destination Sheath TUBING, Merit 1 [id number] 406453 634813 191601 5 CONTRAST Medical INJCTN HI PRES Terumo TORQUE [place] 1 TD01 208647 316419 201770 5 DEVICE Scientific PLASTIC .038 CXI SUPPORT [facility] 1 S67332 283598 182746 5 [id number] .035 135 CM STR catheter Terumo 5FR Terumo 1 CG507 613998 254661 5 ANGLED 65CM glide catheter Euclid Sci Eucl[place] 1 [id number] 049896 710551 299282 5 [id number] Choice PT Scientific Extra Support J 300cm .014 gu SPIDER Medtronic 1 [id number] 321001 828040 5 EMBOLIC PROTECTION DEVICE 5MM Turbohawk 1 Ev3 1 H1-S 559562 0958648 739565 5 [id number] Small Atherectomy catheter [employer] 1 UK1669 158472 515474 241795 5 Inflation Medical Syringe IN.PACT Medtronic 1 [id number] 090569 610755 129875 5 Admiral 5.0 x 120 x 135 DCB Balloon Terumo 6Fr Terumo 1 PTH024 524804 025240 913270 40 Carbon Cliff Sheath Cordis 6Fr Cardinal 1 EX600 274870 683506 591176 10 [id number] [facility] Signature Audit [place] Stage Time Signature Unsigned Intra-Procedure 12/26/2016 Luiz 10:39:56 AM Catracho RT (R) (CV) Signatures Monitor : Luiz Signature : Catracho RT Date : Time : [place] [id number] [place] [id number]
[~2016-12-26 05:40] MED LIST changes: -BAYER CHEWABLE81 MG
[2016-12-26 06:22] VITALS: BP 119/64; Ht 162.6 cm; Wt 58.6 kg
[2016-12-26 06:35] LABS: BASOPHILS 0.5 % (0-2); EOSINOPHILS 3.1 % (0-7); HEMATOCRIT 32.2 % (36.0-48.0); HEMOGLOBIN 10.9 g/dL (12-16); IMMATURE GRANULOCYTES 0.2 % (0-5); LYMPHOCYTES 28.1 % (15-50); MCH 36.5 pg (26.0-34.0); MCHC 33.9 g/dL (31.0-37.0); MCV 107.7 fL (80.0-100.0); MEAN PLATELET VOLUME 8.3 fL (7.4-10.4); MONOCYTES 5.6 % (2-11); NEUTROPHILS 62.5 % (40-80); RBC 2.99 10x6/uL (4.00-5.40); RDW 18.5 % (11.5-14.5); WBC 5.8 10x3/uL (4.8-10.8)
[2016-12-26 06:36] LABS: PLATELET COUNT 249 10x3/uL (130-400)
[2016-12-26 06:46] LABS: CALC OSMOLALITY 280 mosm/kg (275-300); CALCIUM 8.4 mg/dL (8.5-10.1); CARBON DIOXIDE 26.8 mmol/L (21.0-32.0); CHLORIDE - SERUM 105 mmol/L (98-107); CREATININE - SERUM 0.6 mg/dL (0.6-1.3); GLUCOSE 99 mg/dL (74-106); POTASSIUM - SERUM 3.8 mmol/L (3.5-5.1); SODIUM 141 mmol/L (136-145); UREA NITROGEN 13 mg/dL (7-18); eGFR NON AFRICAN AMERICAN > 90 mL/min (90-120)
[2016-12-26 06:48] LABS: APTT 32.1 SECONDS (22.8-39.4); INR 0.93 (0.85-1.17); PROTIME 12.3 SECONDS (11.6-15.0)
--- NOTE | 2016-12-26 11:05 | NUR ---
RECEIVED FROM IR POST AFRO. LEFT GROIN DRESSING WITH SMALL BRIGHT RED BLOOD NOTED. SMALL BRUISE NOTED ON LOWER END OF DRESSING, NO HEMATOMA NOTED. DP PULSES PALPABLE BILATERALLY WITH RIGHT PULSE WEAKER THAN LEFT. DENIES PAIN. UNDERSTANDS TO KEEP GROIN STRAIGT.
--- NOTE | 2016-12-26 13:09 | NUR ---
JERMAINE STEVENS WITH IR IN ROOM. INFORMED OF QUARTER SIZED SPOT OF BLOOD, STATES OK FOR ICE PACK.
--- NOTE | 2016-12-26 17:47 | NUR ---
1500--IV DC'D, PT UP TO DRESS. VALERIE SMILEY 4003--DISCHARGE INSTRUCTIONS GIVEN, PT VERBALIZES UNDERSTANDING. PT OFF UNIT VIA WC. VALERIE SMILEY
== END 2016-12-26 15:30 | disposition home or self-care (01) ==
LOC: D.OPS 05:40 → D.RAD 08:00 → D.OPS 15:30
PROVIDERS: General Practice
DX: I70.211 Atherosclerosis of native arteries of extremities with intermittent claudication, right leg (principal); I70.92 Chronic total occlusion of artery of the extremities; Z01.812 Encounter for preprocedural laboratory examination; T82.528A Displacement of other cardiac and vascular devices and implants, initial encounter

== ENCOUNTER → 2016-12-31 07:41 | Outpatient (CLI) | payer MEDICARE, BC ==
[2016-12-26 06:22] VITALS: BMI 22.2
== END | disposition home or self-care (01) ==
LOC: D.CT 07:41
DX: I73.9 Peripheral vascular disease, unspecified (principal)

== ENCOUNTER 2017-01-24 05:46 | Outpatient (CLI) | payer MEDICARE, BC ==
[~2017-01-24] VITALS: Ht 162.6 cm; Wt 58.6 kg
--- NOTE | ~2017-01-24 | HEMODYNAMI ---
PATIENT:JAD CORNEJO MEDICAL RECORD: [id number] : 50 LOCATION:[facility] ADMISSION DATE: 01/24/17 Generatedon:01/24/20179:33 Patient name: JAD CORNEJO Patient #: [id number] SSN: : 1950 Date of study: 01/24/2017 Page: Of Hemodynamic Procedure Report Patient Data Patient Demographics Procedure consent was obtained First Name: JAD Gender: Female Last Name: CHANTAL : 1950 [facility] Initial: L Age: 66 year(s) Patient #: [id number] Race: Unknown Additional ID: [id number] Contact details Address: [place] [address] State: [place] City: [place] Zip code: [address] Admission Admission Data Admission Date: 01/24/2017 Admission Time: 5:46 Procedure Procedure Types Cath Procedure Peripheral Cath Diagnostic Procedure Miscellaneous Procedure Description Procedure Date Procedure Date: 01/24/2017 Procedure Start Time: 8:37 Procedure Staff Name Function Luiz Hayden RT Monitor Juvencio Sanches MD Performing Physician Phuong Virgen RN Nurse Pam Prajapati RT Scrub Procedure Data Cath Procedure Fluoroscopy Diagnostic fluoroscopy Total fluoroscopy Time: 5.9 time: 5.9 min min Diagnostic fluoroscopy Total fluoroscopy dose: 353 dose: 353 mGy mGy Contrast Material Contrast Material Type Amount (ml) Isovue 300 95 Entry Location Entry Primary Successful Side Size Upsize Upsize Entry Closure Succes sful Closure Location (Fr) 1 (Fr) 2 (Fr) Remarks Device Remarks Femoral Right 5 Fr Exoseal artery Diagnostic catheters Device Type Used For End Catheter Placement Merit ULTRA BOLUS FLUSH 5Fr 65CM catheter Procedure Medications Medication Administration Route Dosage Heparin Bolus I.V. 5000 units Hemodynamics Rest Heart Rate: 53 (bpm) Snapshots Pre Cath Intra NCS Post Cath Vital Signs Time Heart Resp SPO2 NIBP (mmHg) Rhythm Pain Sedation Rate (ipm) (%) Status Level (bpm) 8:14:05 56 26 100 137/55(101) NSR 0 (11) 10(A) , No pain 8:18:23 54 25 100 146/59(103) NSR 0 (11) 10(A) , No pain 8:22:46 56 26 100 133/56(102) NSR 0 (11) 10(A) , No pain 8:27:06 57 21 100 124/48(115) NSR 0 (11) 10(A) , No pain 8:31:15 57 28 96 130/69(97) NSR 0 (11) 10(A) , No pain 8:35:30 60 40 98 122/63(93) NSR 0 (11) 10(A) , No pain 8:39:41 60 41 99 115/61(103) NSR 0 (11) 10(A) , No pain 8:43:47 70 21 98 110/66(97) NSR 0 (11) 10(A) , No pain 8:47:57 54 34 99 126/57(86) NSR 0 (11) 10(A) , No pain 8:52:11 57 29 99 125/58(81) NSR 0 (11) 10(A) , No pain 8:56:23 57 24 99 124/60(83) NSR 0 (11) 10(A) , No pain 9:00:37 58 23 100 119/55(86) NSR 0 (11) 10(A) , No pain 9:04:49 58 25 100 126/60(92) NSR 0 (11) 10(A) , No pain 9:09:05 56 24 100 120/50(86) NSR 0 (11) 10(A) , No pain 9:13:17 59 19 100 122/60(80) NSR 0 (11) 10(A) , No pain 9:18:16 53 20 100 Measuring NSR 0 (11) 10(A) , No pain 9:18:36 54 29 100 142/62(116) NSR 0 (11) 10(A) , No pain 9:23:36 52 24 100 158/66(95) NSR 0 (11) 10(A) , No pain 9:27:58 53 20 100 158/72(95) NSR 0 (11) 10(A) , No pain Medications Time Medication Route Dose Verified Delivered Reason Notes Effec tiveness by by 8:53:02 Heparin I.V. 5000 Phuong Phuong for Bolus units Promise Virgen anticoagulation RN manufacturing engineering intern Log Time Note 7:55:28 Juvencio Sanches MD sent for patient. Start room use. 7:55:30 Time tracking: Regular hours 7:55:36 Plan of Care:Hemodynamics will remain stable., Cardiac rhythm will remain stable., Comfort level will be maintained., Respiratory function will remain adequate., Patient/ family verbilizes understanding of procedure., Procedure tolerated without complication., Recovers from procedure without complications.. 7:56:45 Yahir here from anesthesia for tiva 7:56:51 Patient received from Outpatients to IR Alert and oriented. Tansferred to table in Supine position. 7:56:54 Correct patient and procedure confirmed by team. 7:56:56 Signed procedure consent form obtained from patient. 7:56:57 ECG and BP/O2 sat monitors applied to patient. 7:56:58 Full Disclosure recording started 7:56:59 7:57:07 H&P Date Dictated: 01/24/2017 H&P Addendum completed by physician on day of procedure. (MUST COMPLETE FOR ALL OUTPATIENTS). 8:12:57 Vital chart was started 8:16:37 SEE ANESTHESIA NOTE FOR PRE PROCEDURE TIVA 8:16:45 Bilateral groins area was prepped with chlora-prep and draped in sterile fashion 8:16:47 Alarms reviewed by R. N. 8:16:48 Sharps counted by scrub and verified by R.N. 8:16:51 Use device set IR Diagnostic 8:16:53 Acist Syringe opened to sterile field. 8:16:54 Acist Manifold opened to sterile field. 8:16:54 Acist Hand Control opened to sterile field. 8:16:55 Sterile Angiographic Pack opened to sterile field. 8:16:55 Bag Decanter opened to sterile field. 8:17:54 Pre-op teaching completed and patient verbalized understanding. 8:17:54 Pre-procedure instructions explained to patient. 8:18:00 Baseline sample Acquired. 8:18:07 Rhythm: sinus bradycardia 8:36:34 Physician arrived 8:36:35 Final Timeout: patient, procedure, and site verified with staff and physician. All members of the team are in agreement. 8:36:35 --------ALL STOP TIME OUT------ 8:36:41 Bilateral groins site verified by team. 8:36:46 Physical assessment completed. ASA score P 3 - A patient with severe systemic disease as per Juvencio Sanches MD. 8:36:58 Sedation plan: TIVA Propofol 8:37:04 Procedure started. 8:37:09 Local anesthetic to right femoral artery with Lidocaine 1% by Juvencio Sanches MD.INITIAL ACCESS ONLY 8:38:09 HeadCase Humanufacturing DOC .035 guide wire opened to sterile field. 8:38:10 Terumo 5Fr Ross Sheath opened to sterile field. 8:38:10 Micropuncture VSI 4FR kit opened to sterile field. 8:38:11 TUBING, CONTRAST INJCTN HI PRES opened to sterile field. 8:38:23 A 5 Fr sheath was inserted into the Right Femoral artery 8:45:12 Terumo 5FR ANGLED 65CM glide catheter opened to sterile field. 8:53:02 Heparin Bolus 5000 units I.V. was administered by Phuong Virgen RN; for anticoagulation; 8:54:02 Terumo ANGLE 180L glide wire opened to sterile field. 8:54:03 Terumo TORQUE DEVICE PLASTIC .038 opened to sterile field. 8:57:09 BasixTOUCH Inflation Syringe opened to sterile field. 8:57:54 Jim MOBLEY 180 guide wire opened to sterile field. 9:02:18 A Merit ULTRA BOLUS FLUSH 5Fr 65CM catheter was advanced over the wire and used for . 9:09:16 Cordis 5Fr Exoseal opened to sterile field. 9:09:34 Sheath removed intact; hemostasis achieved with Exoseal to the Right Femoral artery. 9:09:37 Procedure ended.(Physican Out) 9:10:04 Fluoroscopy time 05.90 minutes. 9:10:09 Fluoroscopy dose: 353 mGy 9:10:09 Flurop Dose total: 353 9:11:57 Sharps counted by scrub and verified by R.N. 9:11:58 Insertion/operative site no bleeding no hematoma. 9:12:01 Post-op/insertion site Right Femoral artery dressed using a 4 x 4 and Tegaderm. 9:12:03 Post Procedure Pulses reassessed and unchanged 9:12:12 Post-procedure physical assessment completed. ASA score P 3 - A patient with severe systemic disease as per Juvencio Sanches MD. 9:12:14 Post procedure instruction explained to patient.Patient verbalizes understanding. 9:12:36 Procedure and supply charges have been captured, reviewed, submitted and are correct. 9:18:32 Contrast amount:Isovue 300 95ml. 9:18:52 SEE ANESTHESIA NOTE FOR PRE PROCEDURE TIVA 9:30:26 Report given to Outpatients. 9:30:30 Patient transfered to Outpatients with Bed. 9:32:09 Vital chart was stopped 9:32:13 Full Disclosure recording stopped Device Usage Item Name Manufacture Quantity Catalog Number Hospital Part Current Min imal Lot# / Charge Number Stock Stock Serial# Code Acist Syringe Acist 1 89137 541424 704813 571965 20 Medical Systems Inc Acist Hand Acist 1 25694 141350 660817 379205 5 Control Medical Systems Inc Acist Acist 1 17109 118769 843511 919221 5 Manifold Medical Systems Inc Bag Decanter Microtek 1 2002S 867190 95778 368837 5 Medical Inc. Sterile Cardinal 1 [id number] 409946 518109 5 Angiographic Health Pack Cook DOC .035 Cook Medical 1 O97152 156330 242753 5 [id number] guide wire Micropuncture VSI VASCULAR 1 7266V 466241 322633 5 VSI 4FR kit SOLUTIONS Terumo 5Fr Terumo 1 LAU433 660879 217754 939613 40 Ross Sheath TUBING, Merit 1 [id number] 805843 344505 484087 5 CONTRAST Medical INJCTN HI PRES Terumo 5FR Terumo 1 CG507 060343 116397 5 ANGLED 65CM glide catheter Terumo ANGLE Terumo 1 EM7156 223787 821529 770001 5 180L glide wire Terumo TORQUE [place] 1 TD01 370352 241761 172981 5 DEVICE Scientific PLASTIC .038 BasixTOUCH Merit 1 ZC8432 689973 089405 268516 5 Inflation Medical Syringe Cook MOBLEY [facility] 1 I87479 302020 522435 5 [id number] 180 guide wire Merit ULTRA Merit 1 [id number] 992243 782462 5 BOLUS FLUSH Medical 5Fr 65CM catheter Cordis 5Fr Cardinal 1 EX500 783243 932584 814215 10 [id number] [facility] Signature Audit [place] Stage Time Signature Unsigned Intra-Procedure 01/24/2017 Luiz 9:32:06 AM Catracho RT (R) (CV) Signatures Monitor : Luiz Signature : Catracho RT Date : Time : [address] [id number]
[2017-01-24] MEDS ORDERED: VITAMIN B-121000 MCG PO (06:42)
[2017-01-24 06:43] VITALS: Ht 162.6 cm; Wt 58.6 kg
[2017-01-24 07:24] LABS: HEMATOCRIT 32.9 % (36.0-48.0); HEMOGLOBIN 11.6 g/dL (12-16); LYMPHOCYTES 32.9 % (15-50); MCH 39.6 pg (26.0-34.0); MCHC 35.3 g/dL (31.0-37.0); MCV 112.3 fL (80.0-100.0); MEAN PLATELET VOLUME 7.9 fL (7.4-10.4); NEUTROPHILS 59.2 % (40-80); RBC 2.93 10x6/uL (4.00-5.40); RDW 18.8 % (11.5-14.5); WBC 5.5 10x3/uL (4.8-10.8)
[2017-01-24 07:27] LABS: PLATELET COUNT 300 10x3/uL (130-400)
[2017-01-24 07:32] LABS: INR 0.94 (0.85-1.17); PROTIME 12.4 SECONDS (11.6-15.0)
[2017-01-24 08:08] LABS: CALC OSMOLALITY 280 mosm/kg (275-300); CALCIUM 8.7 mg/dL (8.5-10.1); CHLORIDE - SERUM 104 mmol/L (98-107); CREATININE - SERUM 0.7 mg/dL (0.6-1.3); GLUCOSE 108 mg/dL (74-106); POTASSIUM - SERUM 4.1 mmol/L (3.5-5.1); SODIUM 139 mmol/L (136-145); UREA NITROGEN 18 mg/dL (7-18); eGFR NON AFRICAN AMERICAN 89 mL/min (90-120)
--- NOTE | 2017-01-24 16:48 | NUR ---
1400 IV DC WITH CATHER TIP INTACT STATED RIDE WOULDNOT BE HERE TILL 1530, RIGHT GRION WITH DRESSING INTACT C/D/I
== END 2017-01-24 15:30 | disposition home or self-care (01) ==
LOC: D.OPS 05:46 → D.SP 08:00 → D.OPS 15:30
PROVIDERS: General Practice
DX: I70.201 Unspecified atherosclerosis of native arteries of extremities, right leg (principal); F17.200 Nicotine dependence, unspecified, uncomplicated; J44.9 Chronic obstructive pulmonary disease, unspecified; E03.9 Hypothyroidism, unspecified; R91.1 Solitary pulmonary nodule; Z01.812 Encounter for preprocedural laboratory examination

== ENCOUNTER → 2017-05-12 08:57 | Outpatient (CLI) | payer MEDICARE, BC ==
[2017-01-24 06:43] VITALS: BMI 22.2
[~2017-05-12 08:57] MED LIST changes: +VITAMIN B-121000 MCG PO
== END | disposition home or self-care (01) ==
LOC: D.CT 08:57
DX: R91.8 Other nonspecific abnormal finding of lung field (principal)

== ENCOUNTER → 2018-03-18 08:49 | Outpatient (CLI) | payer MEDICARE, BC ==
[2017-01-24 06:43] VITALS: BMI 22.2
== END | disposition home or self-care (01) ==
LOC: D.CT 08:49
DX: I73.9 Peripheral vascular disease, unspecified (principal)

== ENCOUNTER → 2019-05-13 09:10 | Outpatient (CLI) | payer MEDICARE, BC ==
[2017-01-24 06:43] VITALS: BMI 22.2
== END | disposition home or self-care (01) ==
LOC: D.US 09:10
PROVIDERS: ATTEND General Practice
DX: I73.9 Peripheral vascular disease, unspecified (principal)